=== PATIENT | female | born 1985 | race Caucasian/White ===

== ENCOUNTER 2020-10-05 07:51 | Emergency (ER) | payer OTHER ==
[~2020-10-05] VITALS: Ht 165.1 cm; Wt 60.3 kg
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
[~2020-10-05 07:51] MED LIST: ALBUTEROL INH; CLEOCIN HCL150 MG PO; CLEOCIN HCL300 MG PO; FLEXERIL PO; HYDROCODON-ACE1 EACH PO; IBUPROFEN 800800 M1 PO; MEDROLDOSEPACK PO; NAPROSYN500 MG PO; NOHOMEMEDICATIONS; NORCO 5-325 TA1 EACH PO; PENICILLIN VK500 M1 PO; PROAIR HFA8.5 GM IH; PROTONIX40 MG PO; ULTRAM 50MG TAB50 MG PO; VENTOLIN17 GM INH; ZOFRAN ODT4 MG PO; ZPAK PO
[2020-10-05] MEDS ORDERED: NORVASC 2.5 MG2.5 M1 PO (07:58)
[2020-10-05] MEDS ORDERED: CLINDAMYCIN PO (07:59)
[2020-10-05] MEDS ORDERED: HYDROCODON-ACE1 EAC7 PO (08:00)
[2020-10-05] MEDS ORDERED: PERCOCET 5-3251 EACH PO (08:00)
[2020-10-05 08:34] LABS: URINE BILIRUBIN NEGATIVE (Negative); URINE BLOOD 1+ (Negative); URINE CLARITY CLEAR; URINE COLOR YELLOW; URINE GLUCOSE-RANDOM NEGATIVE (Negative); URINE KETONES NEGATIVE (Negative); URINE PROTEIN TRACE (Negative); URINE UROBILINOGEN 0.2 E.U./dl (0.2-1.0)
[2020-10-05 08:35] LABS: ABSOLUTE BASOPHILS 0.1 thou/uL (0.0-0.2); ABSOLUTE EOSINOPHILS 0.1 thou/uL (0.0-0.7); ABSOLUTE LYMPHOCYTES 0.9 thou/uL (0.8-5.3); ABSOLUTE MONOCYTES 1.2 thou/uL (0.0-1.2); ABSOLUTE NEUTROPHILS 11.2 thou/uL (1.6-8.1); BASOPHILS 0.5 %; EOSINOPHILS 0.6 %; HEMATOCRIT 35.3 % (37.0-47.0); HEMOGLOBIN 12.1 gm/dL (12.0-15.0); LYMPHOCYTES 6.7 %; MCH 32.3 pg (26.0-34.0); MCHC 34.2 g/dL (28.0-37.0); MCV 94.5 fL (80.0-100.0); MPV 7.3 fl. (7.2-11.1); NUCLEATED RBCS 0 /100WBC; PLATELET COUNT* 329 thou/uL (150-400); POLYS 83.2 %; RBC 3.73 mil/uL (4.20-5.00); RDW-CV 12.5 % (10.5-14.5); WBC 13.5 thou/uL (4.0-11.0)
[2020-10-05 08:35] LABS: URINE LEUKOCYTES-REFLEX 3+ (Negative); URINE NITRITE-REFLEX POSITIVE (Negative)
[2020-10-05 08:39] LABS: CASTS None Seen /LPF (None Seen); SQUAMOUS 0-3 Few /LPF (0-3); URINE RBC 0-2 Rare /HPF (0-2); URINE WBC-REFLEX 0-5 Rare /HPF (0-5)
[2020-10-05 08:40] LABS: BACTERIA-REFLEX >30 Many /HPF (None Seen); CRYSTALS None Seen /LPF (None Seen)
[2020-10-05 08:43] LABS: CREATININE 0.9 mg/dL (0.6-1.3); POTASSIUM 3.6 mmol/L (3.5-5.1)
[2020-10-05 08:48] LABS: ALBUMIN 3.1 g/dL (3.4-5.0); TOTAL PROTEIN 7.3 g/dL (6.4-8.2)
[2020-10-05] MEDS ORDERED: CEPHALEXIN500 MG PO ×2 (10:50→11:09)
[2020-10-05 11:16] VITALS: BP 118/73
== END 2020-10-05 11:17 | disposition home or self-care (01) ==
LOC: M.ERS 07:51
PROVIDERS: Emergency Medicine Emergency Medical Services
DX: N39.0 Urinary tract infection, site not specified (principal); J45.909 Unspecified asthma, uncomplicated; Z88.5 Allergy status to narcotic agent; Z88.1 Allergy status to other antibiotic agents; Z88.2 Allergy status to sulfonamides